=== PATIENT | male | born 1965 | race Caucasian/White ===

== ENCOUNTER 2017-11-25 06:38 | Day surgery (SDC) | payer OTHER ==
[2017-11-21 12:09] VITALS: BMI 36.3
[2017-11-25] MEDS ORDERED: BUPIVACAINE HCL/PF 2.5 MG/ML - 30 ML VIAL IJ ONE (08:28)
[2017-11-25] MEDS ORDERED: DESFLURANE GAS 240 ML BOTTLE IH ONE (08:46)
[2017-11-25] MEDS ORDERED: MIDAZOLAM HCL 2 MG/2 ML SINGLE DOSE VIAL ONE (08:48)
[2017-11-25] MEDS ORDERED: ONDANSETRON 4 MG/2 ML VIAL IVPUSH PRN (10:30)
[2017-11-25] MEDS ORDERED: oxyCODONE HCL 5 MG TABLET PO PRN ×2 (10:30)
[2017-11-25] MEDS ORDERED: PROMETHAZINE HCL 25 MG/1 ML VIAL IVPUSH PRN (10:30)
[2017-11-25 11:33] VITALS: TEMP 98.6
[2017-11-25 12:11] VITALS: BP 135/91; PULSE 85
--- NOTE | 2017-11-30 14:47 | PATH ---
Surgical Pathology Report Patient Name: OVI BUTTERFIELD Med. Rec. #: [id number] /Age/Gender: 1965 (Age: 52) / M Account: [id number] Location: [facility] Taken: 11/25/2017 Received: 11/25/2017 Reported: 11/30/2017 Physicians: Ajith Perry M.D. Specimen(s) Received RIGHT KNEE SHAVINGS Clinical History Right knee internal derangement Final Diagnosis KNEE, RIGHT, ARTHROSCOPIC SHAVINGS: CARTILAGE AND FIBROSYNOVIAL TISSUE. Electronically Signed Sharmaine Diaz M.D. Gross Description Received in formalin labeled "right knee shavings," is a 2.0 x 1.4 x 0.2 cm aggregate of cottrell-yellow soft tissue fragments. The formalin is filtered and the specimen is entirely submitted in one cassette. /11/25/2017 saudi/11/25/2017
--- NOTE | 2017-12-03 11:45 | OP ---
DATE OF OPERATION: 11/25/2017 LOCATION: [facility] SURGEON: Ajith Ho MD ELECTRONEURODIAGNOSTIC TECHNICIAN: UNA Donovan PREOPERATIVE DIAGNOSES: 1. Right knee medial and lateral meniscal tear. 2. Right knee cartilage injury. 3. Right knee synovitis. POSTOPERATIVE DIAGNOSES: 1. Right knee medial and lateral meniscal tear. 2. Right knee cartilage injury. 3. Right knee synovitis. PROCEDURE: 1. Right knee arthroscopy, partial meniscectomy of medial and lateral meniscus. CPT code 81144. 2. Right knee arthroscopy with chondroplasty and abrasoplasty. CPT code 44931. 3. Right knee arthroscopy with synovectomy. CPT code 56455. FINDINGS: 1. Medial meniscus posterior body and posterior horn tear. 2. Lateral meniscus anterior horn, body, and posterior horn tear. 3. Synovitis, patellofemoral and medial and lateral notch area. 4. grade 1-2 cartilage injury of the medial femoral condyle. 5. ACL and PCL intact. 6. Diffuse grade 1-2 cartilage injury of the lateral joint line. 7. grade 1-2 cartilage injury, patella and patellofemoral trochlea with anterior grade 4 changes, patellofemoral trochlea at site of medial plica adhesion. DESCRIPTION OF PROCEDURE: Informed consent was obtained. The patient came to the operating room, where the lower extremity was prepped and draped in a sterile fashion. A tourniquet was placed on the upper thigh, but not inflated. Using standard arthroscopic technique, a lateral incision and portal was made to allow for introduction of the camera into the suprapatellar bursa. This was then taken to the medial joint line, where under direct visualization, a medial incision and portal was made. Excessive synovium noted in the medial, lateral and patellofemoral and notch area was removed by an upbiter, shaver and Bovie cautery. This was found to bring in inflammatory tissue into the joint surface, a source of pain and dysfunction. Probing of the medial and lateral meniscus found tears, as described in the findings. These were removed with the upbiter and shaver and taken back to a stable rim. Grade 2 to 3 degenerative changes were treated with a chondroplasty, removing all flaking surfaces with low-setting Bovie along the periphery to prevent further flaking. Grade 4 changes, as noted, were treated with an abrasoplasty, creating a bleeding surface at the bone/cartilage interface. Aggressive debridement with shaver/lou created bleeding surface. Micro fracture also done when indicated in findings. All areas of the knee were once again reexamined. The knee was then drained and a single suture was placed in all portals. A sterile dressing was placed and the patient was transferred to the recovery room without complication. AJITH HO M.D. [id number]
== END 2017-11-25 12:50 | disposition home or self-care (01) ==
LOC: FASU 06:38
PROVIDERS: ATTEND Orthopaedic Surgery
PROC: 0SBC4ZZ Excision of Right Knee Joint, Percutaneous Endoscopic Approach (ICD-10-PCS; 2017-11-25)
PROC: 0SBC4ZZ Excision of Right Knee Joint, Percutaneous Endoscopic Approach (ICD-10-PCS; 2017-11-25)
PROC: 0SBC4ZZ Excision of Right Knee Joint, Percutaneous Endoscopic Approach (ICD-10-PCS; principal; 2017-11-25 09:45)
DX: S83.241A Other tear of medial meniscus, current injury, right knee, initial encounter (principal); S83.281A Other tear of lateral meniscus, current injury, right knee, initial encounter; S83.8X1A Sprain of other specified parts of right knee, initial encounter; M65.861 Other synovitis and tenosynovitis, right lower leg; X58.XXXA Exposure to other specified factors, initial encounter; Y93.9 Activity, unspecified; Y92.9 Unspecified place or not applicable
CPT/HCPCS: 82962; 88304-TC; 94760

== ENCOUNTER 2021-07-25 15:01 | Emergency (ER) | payer BC, OTHER ==
[2021-07-25 15:24] VITALS: BP 163/82; BMI 32.3
[2021-07-25] MEDS ORDERED: KETOROLAC TROMETHAMINE 30 MG/1 ML VIAL IM ONE (15:58)
[2021-07-25 16:50] VITALS: PULSE 97; TEMP 100
== END 2021-07-25 16:49 | disposition home or self-care (01) ==
LOC: JER 15:01
PROC: 3E0233Z Introduction of Anti-inflammatory into Muscle, Percutaneous Approach (ICD-10-PCS; principal; 2021-07-25)
DX: B34.9 Viral infection, unspecified (principal)
CPT/HCPCS: 0241U-QW; 99283-25

== ENCOUNTER 2022-05-07 23:56 | Emergency (ER) | payer BC ==
[2022-05-07] MEDS ORDERED: ALBUTEROL SO4 2.5/IPRATROPIUM 0.5 INH SOL 3 ML VIAL.NEB. NEB ONE (23:59)
[2022-05-07] MEDS ORDERED: DEXAMETHASONE 4 MG TABLET (FP) PO ONE (23:59)
[2022-05-08] MEDS ORDERED: AZITHROMYCIN 500 MG TABLET PO ONE
[2022-05-08 00:05] VITALS: BP 153/90; PULSE 90; RESP 18; TEMP 97.9; BMI 32.3
[2022-05-08] MEDS ORDERED: DEXAMETHASONE 4 MG TABLET (FP) ONE (00:06)
[2022-05-08] MEDS ORDERED: AZITHROMYCIN 250 MG TABLET ONE (00:07)
[2022-05-08] MEDS ORDERED: DEXAMETHASONE 4 MG TABLET (FP) PO ONE (00:12)
== END 2022-05-08 00:56 | disposition home or self-care (01) ==
LOC: FER 23:56
DX: J20.9 Acute bronchitis, unspecified (principal)
CPT/HCPCS: 71046-TC-FY; 99283-25

== ENCOUNTER 2022-07-15 14:48 | Emergency (ER) | payer BC ==
[2022-07-15 15:07] VITALS: BP 148/64; PULSE 105; RESP 17; TEMP 98; BMI 35.5
== END 2022-07-15 17:20 | disposition home or self-care (01) ==
LOC: JERFT 14:48
DX: M79.642 Pain in left hand (principal); W01.0XXA Fall on same level from slipping, tripping and stumbling without subsequent striking against object, initial encounter; Y93.K1 Activity, walking an animal
CPT/HCPCS: 73130-TC-LT-FY; 99283-25

== ENCOUNTER 2022-10-07 01:47 | Inpatient (IN) | payer BC ==
[2022-10-07 02:00] VITALS: BMI 35.5
[2022-10-07] MEDS ORDERED: ACETAMINOPHEN 1000 MG/100 ML BAG IVPB ONE (02:42)
[2022-10-07] MEDS ORDERED: ONDANSETRON 4 MG/2 ML VIAL IVPUSH ONE (02:43)
[2022-10-07] MEDS ORDERED: FAMOTIDINE 20 MG/50 ML IVPB 20 MG/50 ML MG IVPB ONE ×2 (02:43→03:00)
[2022-10-07] MEDS ORDERED: ONDANSETRON 4 MG/2 ML VIAL ONE (03:00)
[2022-10-07] MEDS ORDERED: ACETAMINOPHEN INJECTION 100 ML IVPB ONE (03:00)
[2022-10-07] MEDS ORDERED: LACTATED RINGERS SOLUTION 1000 ML INFUS.BAG IV ONE ×2 (03:00→05:40)
[2022-10-07 03:08] LABS: HEMATOCRIT 42.9 % (35.4-49); HEMOGLOBIN 14.4 GM/dL (11.7-16.9); MCH 29.6 pg (25.7-33.7); MCHC 33.5 g/dl (32.0-35.9); MEAN CELL VOLUME 88.2 fl (80-96); MEAN PLT VOLUME 9.6 fl (7.5-11.1); PLATELET COUNT 270 10^3/uL (134-434); RBC 4.86 M/mm3 (4.00-5.60); RDW 13.8 % (11.9-15.9); WHITE BLOOD COUNT 20.9 K/mm3 (4.0-10.0)
[2022-10-07 03:13] LABS: PH,URINE 6.5 (5.0-8.0); URINE APPEARANCE CLEAR; URINE BILIRUBIN NEGATIVE (NEGATIVE); URINE COLOR YELLOW; URINE GLUCOSE (UA) 3+ (NEGATIVE); URINE KETONE TRACE (NEGATIVE); URINE LEUK ESTERASE NEGATIVE (NEGATIVE); URINE NITRITE NEGATIVE (NEGATIVE); URINE PROTEIN NEGATIVE (NEGATIVE); URINE UROBILINOGEN 0.2 mg/dL (0.2-1.0)
[2022-10-07 03:40] LABS: ANISOCYTOSIS 0; MACROCYTOSIS 0
[2022-10-07 03:48] LABS: CHLORIDE 102 mmol/L (98-107); POTASSIUM 4.1 mmol/L (3.5-5.1); SODIUM 140 mmol/L (136-145)
[2022-10-07 03:50] LABS: CALCIUM 9.2 mg/dL (8.5-10.1)
[2022-10-07 03:51] LABS: ALBUMIN 3.9 g/dl (3.4-5.0); ANION GAP 10 MMOL/L (8-16); BLOOD UREA NITROGEN 21.8 mg/dL (7-18); CO2 28 mmol/L (21-32); GLUCOSE,RANDOM 382 mg/dL (74-106)
[2022-10-07 03:53] LABS: SGPT/ALT 135 U/L (13-61)
[2022-10-07 03:54] LABS: CREATININE 1.5 mg/dL (0.55-1.3); SGOT/AST 196 U/L (15-37)
[2022-10-07 03:55] LABS: BILIRUBIN,TOTAL 1.6 mg/dL (0.2-1); TOT PROT 7.3 g/dl (6.4-8.2)
[2022-10-07 03:57] LABS: ALK PHOS 131 U/L (45-117)
[2022-10-07 04:54] LABS: LIPASE > 30000 U/L (73-393)
[2022-10-07 06:40] LABS: CHOLESTEROL 145 mg/dL (50-200)
[2022-10-07 06:41] LABS: LDL CHOLESTEROL (ONLY SJRH) 62 mg/dL (5-100)
[2022-10-07 06:43] LABS: HDL CHOLESTEROL 71 mg/dL (40-60)
[2022-10-07 08:52] LABS: BILIRUBIN,DIRECT 1.2 mg/dL (0.0-0.2)
[2022-10-07] MEDS ORDERED: PROCHLORPERAZINE INJECTION 10 MG/2 ML VIAL IVPB PRN (09:45)
[2022-10-07] MEDS ORDERED: HYDROmorphone HCl 2 MG/ML VIAL IVPUSH PRN (09:46)
[2022-10-07] MEDS ORDERED: ACETAMINOPHEN 1000 MG/100 ML BAG IVPB PRN (09:49)
[2022-10-07] MEDS: INSULIN (LEVEMIR) 100 UNITS/ML UNITS SQ SCH ×2 (10:15→21:37)
[2022-10-07] MEDS: PANTOPRAZOLE SODIUM 40 MG VIAL IVPUSH SCH (10:15)
[2022-10-07] MEDS: INSULIN SLIDING SCALE (NOVOLOG) 1 VIAL SQ SCH ×3 (11:34→21:38)
[2022-10-07] MEDS: LACTATED RINGERS SOLUTION 1,000 ML/1,000 ML INFUS.BAG IV SCH ×2 (12:39→19:25)
[2022-10-07] MEDS: HEPARIN NA (PORCINE) 5,000 UNITS/ML 1ML VIAL SQ SCH ×2 (14:56→21:36)
[2022-10-07] MEDS: GABAPENTIN 300 MG CAPSULE PO SCH (21:38)
[2022-10-08] MEDS: LACTATED RINGERS SOLUTION 1,000 ML/1,000 ML INFUS.BAG IV SCH ×4 (02:50→19:18)
[2022-10-08] MEDS: INSULIN (LEVEMIR) 100 UNITS/ML UNITS SQ SCH ×2 (06:13→21:52)
[2022-10-08] MEDS: INSULIN SLIDING SCALE (NOVOLOG) 1 VIAL SQ SCH ×4 (06:14→21:52)
[2022-10-08] MEDS: HEPARIN NA (PORCINE) 5,000 UNITS/ML 1ML VIAL SQ SCH ×3 (06:14→21:52)
[2022-10-08] MEDS ORDERED: POLYETHYLENE GLYCOL (HEALTHYLAX) 3350 17 GM PACKET PO SCH (10:00)
[2022-10-08] MEDS ORDERED: IBUPROFEN 600 MG TABLET (FP) PO PRN (10:20)
[2022-10-08] MEDS ORDERED: ACETAMINOPHEN 500 MG TABLET (FP) PO PRN (10:21)
[2022-10-08 10:26] LABS: BASO % 0.2 % (0-2.0); EOS % 0.3 % (0-4.5); HEMATOCRIT 42.8 % (35.4-49); HEMOGLOBIN 13.9 GM/dL (11.7-16.9); LYMPH % 17.6 % (8-40); MCH 29.3 pg (25.7-33.7); MCHC 32.6 g/dl (32.0-35.9); MEAN CELL VOLUME 89.9 fl (80-96); MONO % 9.1 % (3.8-10.2); NEUT % 72.8 % (42.8-82.8); PLATELET COUNT 279 10^3/uL (134-434); RBC 4.76 M/mm3 (4.00-5.60); RDW 13.6 % (11.9-15.9); WHITE BLOOD COUNT 18.7 K/mm3 (4.0-10.0)
[2022-10-08] MEDS: PANTOPRAZOLE SODIUM 40 MG VIAL IVPUSH SCH (10:26)
[2022-10-08] MEDS: GABAPENTIN 300 MG CAPSULE PO SCH ×2 (10:26→21:51)
[2022-10-08 10:42] LABS: BLOOD UREA NITROGEN 15.7 mg/dL (7-18)
[2022-10-08 10:43] LABS: ALBUMIN 3.5 g/dl (3.4-5.0); MAGNESIUM 1.9 mg/dL (1.8-2.4)
[2022-10-08 10:45] LABS: BILIRUBIN,TOTAL 0.7 mg/dL (0.2-1); CHOLESTEROL 141 mg/dL (50-200); CREATININE 1.2 mg/dL (0.55-1.3); PHOSPHOROUS 2.5 mg/dL (2.5-4.9); TOT PROT 6.9 g/dl (6.4-8.2)
[2022-10-08 10:46] LABS: LDL CHOLESTEROL (ONLY SJRH) 57 mg/dL (5-100)
[2022-10-08 10:48] LABS: HDL CHOLESTEROL 73 mg/dL (40-60)
[2022-10-08] MEDS: INSULIN (NOVOLOG) ASPART 100 UNITS/ML 10ML VIAL SQ SCH ×2 (11:49→18:26)
[2022-10-08] MEDS: ACETAMINOPHEN 325 MG TABLET (FP) PO PRN (19:07)
[2022-10-08] MEDS: oxyCODONE HCL 5 MG TABLET PO PRN (22:53)
[2022-10-09] MEDS: ACETAMINOPHEN 325 MG TABLET (FP) PO PRN ×3 (00:15→14:46)
[2022-10-09] MEDS: LACTATED RINGERS SOLUTION 1,000 ML/1,000 ML INFUS.BAG IV SCH ×3 (03:13→20:16)
[2022-10-09] MEDS: SIMETHICONE 80 MG TAB.CHEW (FP) PO PRN ×3 (06:29→20:32)
[2022-10-09] MEDS: oxyCODONE HCL 5 MG TABLET PO PRN ×2 (06:29→20:31)
[2022-10-09] MEDS: HEPARIN NA (PORCINE) 5,000 UNITS/ML 1ML VIAL SQ SCH ×3 (06:29→21:39)
[2022-10-09] MEDS: INSULIN SLIDING SCALE (NOVOLOG) 1 VIAL SQ SCH ×4 (06:30→21:39)
[2022-10-09] MEDS: INSULIN (LEVEMIR) 100 UNITS/ML UNITS SQ SCH ×2 (06:30→21:39)
[2022-10-09] MEDS: INSULIN (NOVOLOG) ASPART 100 UNITS/ML 10ML VIAL SQ SCH ×3 (06:30→16:39)
[2022-10-09] MEDS: PANTOPRAZOLE SODIUM 40 MG VIAL IVPUSH SCH (09:56)
[2022-10-09 09:59] LABS: HEMATOCRIT 39.1 % (35.4-49); HEMOGLOBIN 13.3 GM/dL (11.7-16.9); MCH 29.7 pg (25.7-33.7); MEAN CELL VOLUME 87.4 fl (80-96); MEAN PLT VOLUME 9.5 fl (7.5-11.1); PLATELET COUNT 224 10^3/uL (134-434); RBC 4.48 M/mm3 (4.00-5.60); RDW 13.8 % (11.9-15.9); WHITE BLOOD COUNT 15.1 K/mm3 (4.0-10.0)
[2022-10-09] MEDS: GABAPENTIN 300 MG CAPSULE PO SCH ×2 (09:59→21:38)
[2022-10-09 10:19] LABS: POTASSIUM 3.8 mmol/L (3.5-5.1)
[2022-10-09 10:28] LABS: BLOOD UREA NITROGEN 8.9 mg/dL (7-18); CALCIUM 8.5 mg/dL (8.5-10.1)
[2022-10-09 10:30] LABS: CREATININE 0.9 mg/dL (0.55-1.3)
[2022-10-09 10:33] LABS: BILIRUBIN,TOTAL 0.5 mg/dL (0.2-1); TOT PROT 6.4 g/dl (6.4-8.2)
[2022-10-10] MEDS: ACETAMINOPHEN 325 MG TABLET (FP) PO PRN (00:08)
[2022-10-10] MEDS ORDERED: MELATONIN 5 MG TABLETS PO ONE ×2 (00:31→21:50)
[2022-10-10] MEDS: LACTATED RINGERS SOLUTION 1,000 ML/1,000 ML INFUS.BAG IV SCH ×5 (01:48→19:17)
[2022-10-10] MEDS: SIMETHICONE 80 MG TAB.CHEW (FP) PO PRN ×2 (04:59→21:21)
[2022-10-10] MEDS: HEPARIN NA (PORCINE) 5,000 UNITS/ML 1ML VIAL SQ SCH ×3 (06:54→21:15)
[2022-10-10] MEDS: INSULIN (LEVEMIR) 100 UNITS/ML UNITS SQ SCH ×2 (06:54→21:15)
[2022-10-10] MEDS: INSULIN SLIDING SCALE (NOVOLOG) 1 VIAL SQ SCH ×4 (06:55→21:16)
[2022-10-10] MEDS: INSULIN (NOVOLOG) ASPART 100 UNITS/ML 10ML VIAL SQ SCH ×3 (06:55→17:34)
[2022-10-10] MEDS: oxyCODONE HCL 5 MG TABLET PO PRN ×2 (07:03→21:14)
[2022-10-10] MEDS: GABAPENTIN 300 MG CAPSULE PO SCH ×2 (09:24→21:15)
[2022-10-10] MEDS: PANTOPRAZOLE SODIUM 40 MG VIAL IVPUSH SCH (09:24)
[2022-10-10] MEDS: LOSARTAN POTASSIUM 50 MG TABLET PO SCH (11:24)
[2022-10-11 00:47] VITALS: RESP 18
[2022-10-11] MEDS: LACTATED RINGERS SOLUTION 1,000 ML/1,000 ML INFUS.BAG IV SCH ×3 (02:03→08:54)
[2022-10-11] MEDS: INSULIN (LEVEMIR) 100 UNITS/ML UNITS SQ SCH (06:27)
[2022-10-11] MEDS: INSULIN (NOVOLOG) ASPART 100 UNITS/ML 10ML VIAL SQ SCH ×2 (06:28→11:45)
[2022-10-11] MEDS: INSULIN SLIDING SCALE (NOVOLOG) 1 VIAL SQ SCH ×2 (06:28→11:45)
[2022-10-11] MEDS: HEPARIN NA (PORCINE) 5,000 UNITS/ML 1ML VIAL SQ SCH ×2 (06:29→14:51)
[2022-10-11] MEDS: LOSARTAN POTASSIUM 50 MG TABLET PO SCH (10:20)
[2022-10-11] MEDS: GABAPENTIN 300 MG CAPSULE PO SCH (10:20)
[2022-10-11 10:30] LABS: BASO % 0.3 % (0-2.0); EOS % 0.9 % (0-4.5); HEMATOCRIT 40.7 % (35.4-49); HEMOGLOBIN 13.5 GM/dL (11.7-16.9); LYMPH % 20.3 % (8-40); MCH 29.4 pg (25.7-33.7); MCHC 33.2 g/dl (32.0-35.9); MEAN CELL VOLUME 88.6 fl (80-96); MEAN PLT VOLUME 9.4 fl (7.5-11.1); MONO % 9.7 % (3.8-10.2); NEUT % 68.8 % (42.8-82.8); PLATELET COUNT 268 10^3/uL (134-434); RDW 13.4 % (11.9-15.9); WHITE BLOOD COUNT 12.8 K/mm3 (4.0-10.0)
[2022-10-11 10:46] VITALS: BP 154/97; PULSE 104; TEMP 98.2
[2022-10-11 14:45] LABS: ALBUMIN 2.8 g/dl (3.4-5.0); BILIRUBIN,TOTAL 0.3 mg/dL (0.2-1); BLOOD UREA NITROGEN 9.6 mg/dL (7-18); CALCIUM 8.5 mg/dL (8.5-10.1); CREATININE 1.1 mg/dL (0.55-1.3); POTASSIUM 4.2 mmol/L (3.5-5.1); TOT PROT 6.2 g/dl (6.4-8.2)
== END 2022-10-11 15:39 | disposition home or self-care (01) | DRG 439 ==
LOC: JER 01:47 → JERBED 05:52 → J5S 08:55
PROVIDERS: ADMIT Internal Medicine
DX: K85.90 Acute pancreatitis without necrosis or infection, unspecified (principal); N17.9 Acute kidney failure, unspecified; I10 Essential (primary) hypertension; E78.5 Hyperlipidemia, unspecified; E11.9 Type 2 diabetes mellitus without complications; E66.9 Obesity, unspecified; Z68.35 Body mass index [BMI] 35.0-35.9, adult; I16.0 Hypertensive urgency; K76.0 Fatty (change of) liver, not elsewhere classified
CPT/HCPCS: 36415; 71045-TC-FY; 74177-TC; 74181-TC; 76705-TC; 80053; 80061; 81003; 82248; 82962; 83690; 83735; 84100; 84484; 85025; 85027; 86140; 87086; 93005; 93010; 99285-25; J1644

== ENCOUNTER 2023-01-01 12:56 | Emergency (ER) | payer BC ==
[2023-01-01 13:14] VITALS: BP 144/71; PULSE 88; RESP 20; TEMP 98.7; BMI 37.1
== END 2023-01-01 14:43 | disposition home or self-care (01) ==
LOC: JERFT 12:56
DX: R05.9 Cough, unspecified (principal); R68.83 Chills (without fever); Z20.822 Contact with and (suspected) exposure to COVID-19
CPT/HCPCS: 0241U-QW; 99283-25

== ENCOUNTER 2023-01-23 18:57 | Emergency (ER) | payer BC ==
[2023-01-23 19:04] VITALS: BP 164/82; PULSE 90; RESP 18; TEMP 98.4; BMI 37.1
[2023-01-23] MEDS ORDERED: SODIUM CHLORIDE 0.9% 1000 ML INFUS.BAG IV ONE (19:40)
[2023-01-23] MEDS ORDERED: METOCLOPRAMIDE HCL INJECTION 10 MG/2 ML VIAL IVPUSH ONE (20:04)
[2023-01-23] MEDS ORDERED: METOCLOPRAMIDE HCL INJECTION 10 MG/2 ML VIAL ONE (20:04)
[2023-01-23 20:14] LABS: HEMATOCRIT 40.9 % (35.4-49); HEMOGLOBIN 13.6 GM/dL (11.7-16.9); MCH 29.4 pg (25.7-33.7); MCHC 33.2 g/dl (32.0-35.9); MEAN CELL VOLUME 88.4 fl (80-96); MEAN PLT VOLUME 9.4 fl (7.5-11.1); PLATELET COUNT 262 10^3/uL (134-434); RBC 4.63 M/mm3 (4.00-5.60); RDW 13.7 % (11.9-15.9)
[2023-01-23 20:15] LABS: PH,URINE 6.5 (5.0-8.0); URINE APPEARANCE CLEAR; URINE BILIRUBIN NEGATIVE (NEGATIVE); URINE COLOR YELLOW; URINE GLUCOSE (UA) 3+ (NEGATIVE); URINE KETONE NEGATIVE (NEGATIVE); URINE LEUK ESTERASE NEGATIVE (NEGATIVE); URINE NITRITE NEGATIVE (NEGATIVE); URINE PROTEIN TRACE (NEGATIVE); URINE UROBILINOGEN 0.2 mg/dL (0.2-1.0)
[2023-01-23 20:30] LABS: POTASSIUM 3.9 mmol/L (3.5-5.1)
[2023-01-23 20:33] LABS: ALBUMIN 3.4 g/dl (3.4-5.0); CALCIUM 8.6 mg/dL (8.5-10.1)
[2023-01-23 20:34] LABS: BLOOD UREA NITROGEN 17.5 mg/dL (7-18)
[2023-01-23 20:37] LABS: BILIRUBIN,TOTAL 0.3 mg/dL (0.2-1); TOT PROT 6.6 g/dl (6.4-8.2)
== END 2023-01-23 21:49 | disposition home or self-care (01) ==
LOC: JERFT 18:57
PROC: 3E033GC Introduction of Other Therapeutic Substance into Peripheral Vein, Percutaneous Approach (ICD-10-PCS; principal; 2023-01-23)
DX: R11.10 Vomiting, unspecified (principal); R09.81 Nasal congestion; R53.83 Other fatigue; K52.9 Noninfective gastroenteritis and colitis, unspecified; A05.9 Bacterial foodborne intoxication, unspecified; Z20.822 Contact with and (suspected) exposure to COVID-19
CPT/HCPCS: 0241U-QW; 36415; 80053; 81003; 82150; 83605; 83690; 84484; 85027; 93005; 93010; 99284-25

== ENCOUNTER 2023-04-07 19:12 | Emergency (ER) | payer BC ==
[2023-04-07 19:46] VITALS: BP 153/82; PULSE 100; RESP 18; TEMP 98.7; BMI 36.1
[2023-04-07] MEDS ORDERED: FAMOTIDINE 20 MG/50 ML IVPB 20 MG/50 ML MG IVPB ONE ×2 (20:12→20:41)
[2023-04-07] MEDS ORDERED: LACTATED RINGERS SOLUTION 1000 ML INFUS.BAG IV ONE (20:15)
[2023-04-07] MEDS ORDERED: ONDANSETRON 4 MG/2 ML VIAL IVPUSH ONE (20:35)
[2023-04-07] MEDS ORDERED: ONDANSETRON 4 MG/2 ML VIAL ONE (20:41)
[2023-04-07 20:44] LABS: VENOUS O2 SATURATION 58.7 % (70-80); VENOUS PCO2 50.3 mmHg (38-52); VENOUS PH 7.407 (7.310-7.410)
[2023-04-07 20:49] LABS: BASO % 0.5 % (0-2.0); EOS % 0.4 % (0-4.5); HEMATOCRIT 42.9 % (35.4-49); HEMOGLOBIN 14.6 GM/dL (11.7-16.9); MCH 29.7 pg (25.7-33.7); MCHC 33.9 g/dl (32.0-35.9); MEAN CELL VOLUME 87.6 fl (80-96); MEAN PLT VOLUME 9.3 fl (7.5-11.1); MONO % 8.1 % (3.8-10.2); PLATELET COUNT 246 10^3/uL (134-434); RDW 14.3 % (11.9-15.9); WHITE BLOOD COUNT 10.5 K/mm3 (4.0-10.0)
[2023-04-07 21:00] LABS: PH,URINE 6.5 (5.0-8.0); URINE APPEARANCE CLEAR; URINE BILIRUBIN NEGATIVE (NEGATIVE); URINE COLOR YELLOW; URINE GLUCOSE (UA) 3+ (NEGATIVE); URINE KETONE NEGATIVE (NEGATIVE); URINE LEUK ESTERASE NEGATIVE (NEGATIVE); URINE NITRITE NEGATIVE (NEGATIVE); URINE PROTEIN TRACE (NEGATIVE); URINE UROBILINOGEN 0.2 mg/dL (0.2-1.0)
[2023-04-07 21:11] LABS: POTASSIUM 4.4 mmol/L (3.5-5.1)
[2023-04-07 21:13] LABS: BLOOD UREA NITROGEN 18.7 mg/dL (7-18)
[2023-04-07 21:14] LABS: CALCIUM 9.9 mg/dL (8.5-10.1)
[2023-04-07 21:15] LABS: ALBUMIN 3.8 g/dl (3.4-5.0)
[2023-04-07 21:16] LABS: CREATININE 1.2 mg/dL (0.55-1.3)
[2023-04-07 21:18] LABS: TOT PROT 7.2 g/dl (6.4-8.2)
[2023-04-07 21:19] LABS: BILIRUBIN,TOTAL 0.4 mg/dL (0.2-1)
== END 2023-04-07 22:13 | disposition home or self-care (01) ==
LOC: JER 19:12
PROC: 3E033GC Introduction of Other Therapeutic Substance into Peripheral Vein, Percutaneous Approach (ICD-10-PCS; principal; 2023-04-07)
PROC: 3E033GC Introduction of Other Therapeutic Substance into Peripheral Vein, Percutaneous Approach (ICD-10-PCS; 2023-04-07)
DX: R11.2 Nausea with vomiting, unspecified (principal); Z20.822 Contact with and (suspected) exposure to COVID-19
CPT/HCPCS: 0241U-QW; 36415; 71045-TC-FY; 80053; 80061; 81003; 82803; 83690; 83735; 84484; 85025; 87086; 93005; 93010; 99285-25

== ENCOUNTER 2023-10-01 07:17 | Emergency (ER) | payer BC ==
[2023-10-01 07:24] VITALS: RESP 18; TEMP 98.4; BMI 37.1
[2023-10-01] MEDS: SODIUM CHLORIDE 0.9% 500 ML INFUS.BAG IV ONE (08:25)
[2023-10-01 08:45] LABS: BASO % 0.7 % (0-2.0); HEMATOCRIT 42.2 % (35.4-49); HEMOGLOBIN 14.5 GM/dL (11.7-16.9); MCH 30.3 pg (25.7-33.7); MCHC 34.3 g/dl (32.0-35.9); MEAN CELL VOLUME 88.5 fl (80-96); MEAN PLT VOLUME 9.6 fl (7.5-11.1); MONO % 12.1 % (3.8-10.2); NEUT % 52.2 % (42.8-82.8); PLATELET COUNT 226 10^3/uL (134-434); RBC 4.76 M/mm3 (4.00-5.60); RDW 13.9 % (11.9-15.9); WHITE BLOOD COUNT 9.6 K/mm3 (4.0-10.0)
[2023-10-01 09:16] VITALS: BP 140/64; PULSE 74
[2023-10-01 09:26] LABS: POTASSIUM 3.9 mmol/L (3.5-5.1)
[2023-10-01 09:28] LABS: ALBUMIN 3.5 g/dl (3.4-5.0)
[2023-10-01 09:29] LABS: BLOOD UREA NITROGEN 20.9 mg/dL (7-18)
[2023-10-01 09:31] LABS: CREATININE 1.3 mg/dL (0.55-1.3)
[2023-10-01 09:33] LABS: BILIRUBIN,TOTAL 0.2 mg/dL (0.2-1); TOT PROT 6.9 g/dl (6.4-8.2)
== END 2023-10-01 11:04 | disposition home or self-care (01) ==
LOC: JER 07:17
DX: R20.0 Anesthesia of skin (principal); R20.2 Paresthesia of skin
CPT/HCPCS: 36415; 70450-TC; 71046-TC-FY; 80053; 82962; 84484; 85025; 93005; 93010; 99285-25

== ENCOUNTER 2023-12-16 23:22 | Emergency (ER) | payer BC ==
[2023-12-16 23:27] VITALS: BP 141/66; PULSE 98; RESP 18; TEMP 99.6; BMI 37.1
[2023-12-16] MEDS ORDERED: AZITHROMYCIN 500 MG TABLET ONE (23:39)
[2023-12-16] MEDS ORDERED: ACETAMINOPHEN 500 MG TABLET (FP) ONE (23:41)
[2023-12-16] MEDS: AZITHROMYCIN 500 MG TABLET PO ONE (23:41)
[2023-12-16] MEDS: ACETAMINOPHEN 500 MG TABLET (FP) PO ONE (23:46)
== END 2023-12-16 23:50 | disposition home or self-care (01) ==
LOC: FER 23:22
DX: R05.9 Cough, unspecified (principal); R09.81 Nasal congestion; R50.9 Fever, unspecified; R53.83 Other fatigue; Z20.822 Contact with and (suspected) exposure to COVID-19
CPT/HCPCS: 0241U-QW; 99283-25

== ENCOUNTER 2024-07-21 01:19 | Emergency (ER) | payer BC ==
[2024-07-21 01:33] VITALS: BMI 36.3
[2024-07-21] MEDS: SODIUM CHLORIDE 1,000 ML IV ONE (02:21)
[2024-07-21] MEDS ORDERED: ONDANSETRON 4 MG/2 ML VIAL ONE (02:22)
[2024-07-21] MEDS: ONDANSETRON 4 MG/2 ML VIAL IVPB ONE (02:38)
[2024-07-21 03:20] LABS: ABSOLUTE IMMATURE GRANULOCYTES 0.05 x10^3/uL (0.0-0.031); BASOPHILS # 0.06 x10^3/uL (0.01-0.08); EOSINOPHIL % 1.8 % (0.8-7.0); EOSINOPHILS # 0.24 x10^3/uL (0.04-0.54); HEMATOCRIT 43.6 % (40.1-51.0); HEMOGLOBIN 14.3 g/dL (13.7-17.5); MCHC 32.8 g/dl (32.3-36.5); MEAN CELL VOLUME 90.3 fl (79.0-92.2); MEAN PLT VOLUME 11.2 fl (9.4-12.4); MONOCYTE # 1.26 x10^3/uL (0.30-0.82); MONOCYTE % 9.6 % (5.3-12.2); PLATELET COUNT 263 x10^3/uL (163-337); RDW 13.2 % (12.2-16.1)
[2024-07-21 03:40] LABS: POTASSIUM 4.4 mmol/L (3.5-5.1)
[2024-07-21 03:43] LABS: ALBUMIN 3.8 g/dl (3.4-5.0); BLOOD UREA NITROGEN 32.1 mg/dL (7-18); MAGNESIUM 2.1 mg/dL (1.8-2.4)
[2024-07-21 03:46] LABS: CREATININE 1.2 mg/dL (0.55-1.3)
[2024-07-21 03:47] LABS: BILIRUBIN,TOTAL 0.3 mg/dL (0.2-1)
[2024-07-21 07:50] VITALS: BP 139/81; PULSE 77; RESP 16; TEMP 98.2
== END 2024-07-21 09:16 | disposition home or self-care (01) ==
LOC: FER 01:19
PROC: 3E033GC Introduction of Other Therapeutic Substance into Peripheral Vein, Percutaneous Approach (ICD-10-PCS; principal; 2024-07-21)
PROC: 3E0337Z Introduction of Electrolytic and Water Balance Substance into Peripheral Vein, Percutaneous Approach (ICD-10-PCS; 2024-07-21)
DX: K52.9 Noninfective gastroenteritis and colitis, unspecified (principal); R11.2 Nausea with vomiting, unspecified; R10.13 Epigastric pain
CPT/HCPCS: 36415; 74177-TC; 80053; 82550; 82553; 83735; 84484; 85025; 93005; 99285-25; Q9967